=== PATIENT | female | born 1990 | race Caucasian/White ===

== ENCOUNTER 2017-06-24 16:44 | Inpatient (IN) | payer OTHER ==
[~2017-06-24] VITALS: Ht 165.1 cm; Wt 84.8 kg
[2017-06-24] MEDS ORDERED: diphenhydrAMINE 50 MG CAPSULE PO PRN (18:15)
[2017-06-24] MEDS ORDERED: ACETAMINOPHEN 325 MG TABLET PO PRN (18:15)
[2017-06-24] MEDS ORDERED: LORAZEPAM 1 MG TABLET PO PRN ×2 (18:15)
[2017-06-24] MEDS ORDERED: ONDANSETRON 4 MG/2 ML VIAL IM PRN (18:15)
[2017-06-24] MEDS ORDERED: IBUPROFEN 600 MG TABLET PO PRN (18:15)
[2017-06-24] MEDS ORDERED: HYDROXYZINE PAMOATE 25 MG CAPSULE PO PRN (18:15)
[2017-06-24] MEDS ORDERED: MIRALAX 17 GM POWD.PACK PO PRN (18:15)
[2017-06-24] MEDS ORDERED: LOPERAMIDE HCL 2 MG CAPSULE PO PRN ×2 (18:15)
[2017-06-24] MEDS ORDERED: LORAZEPAM 2 MG/1 ML VIAL IM PRN (18:15)
[2017-06-24] MEDS ORDERED: MAG HYDROX/AL HYDROX/SIMETH 30 ML LIQUID UDC PO PRN (18:15)
[2017-06-24] MEDS ORDERED: BUPRENORPHINE HCL 2 MG TAB.SUBL SL PRN (18:15)
[2017-06-24] MEDS ORDERED: ONDANSETRON ODT 4 MG TAB.RAPDIS SL PRN (18:15)
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
--- NOTE | 2017-06-24 18:45 | NUR ---
Client is on 3rd floor, Skin check performed by nurse, pictures taken of L wrist and R knee. Urine has not been collected yet. All safety measures instituted. Seizure precaution. Call light within reach. Will continue to monitor.
[2017-06-24 18:57] LABS: BASOPHILS # (AUTO) 0.1 K/uL (0.0-8.0); BASOPHILS % (AUTO) 0.7 % (0.0-2.0); EOSINOPHILS # (AUTO) 0.4 K/uL (0.0-0.7); EOSINOPHILS % (AUTO) 4.4 % (0.0-7.0); HEMATOCRIT 33.8 % (37-47); HEMOGLOBIN 11.4 G/DL (12.0-16.0); LYMPHOCYTES # (AUTO) 1.7 K/UL (0.8-4.8); LYMPHOCYTES % (AUTO) 19.8 % (20.5-51.5); MEAN CORPUSCULAR HEMOGLOBIN 28.8 UUG (27.0-31.0); MEAN CORPUSCULAR HGB CONC 34 g/dL (32.0-37.0); MEAN CORPUSCULAR VOLUME 85.7 FL (81.0-99.0); MONOCYTES # (AUTO) 0.4 K/UL (0.1-1.30); MONOCYTES % (AUTO) 4.2 % (0.0-11.0); NEUTROPHILS # (AUTO) 5.9 K/UL (1.8-8.9); NEUTROPHILS % (AUTO) 70.9 % (38.5-71.5); PLATELET COUNT (AUTO) 223 K/UL (150-450); RED BLOOD CELL COUNT(AUTO) 3.95 MIL/UL (4.2-5.4); WHITE BLOOD COUNT (AUTO) 8.5 K/UL (4.0-11.2)
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
[2017-06-24 19:06] LABS: *URINE HCG, QUAL NEGATIVE (NEGATIVE); ALANINE AMINOTRANSFERASE 19 U/L (14-59); ALKALINE PHOSPHATASE 103 U/L (50-136); ASPARTATE AMINOTRANSFERASE 16 U/L (15-37); BILIRUBIN,TOTAL 0.2 mg/dL (0.2-1.0); CARBON DIOXIDE 29 mmol/L (21-32); CHLORIDE 105 mmol/L (98-107); CREATININE 0.8 mg/dL (0.6-1.3); GLUCOSE 111 mg/dL (74-106); MAGNESIUM 1.8 mg/dL (1.8-2.4); TOTAL PROTEIN, SERUM 6.4 g/dL (6.4-8.2); UREA NITROGEN, BLOOD 6 mg/dL (7-18)
[2017-06-24 19:14] LABS: ETHANOL < 3 MG/DL (0-0)
[2017-06-24 19:27] LABS: *AMPHETAMINE, URINE NEGATIVE (NEGATIVE); *BARBITURATE, URINE POSITIVE (NEGATIVE); *CANNABINOID, URINE NEGATIVE (NEGATIVE); *COCCAINE, URINE NEGATIVE (NEGATIVE); *OPIATE, URINE POSITIVE (NEGATIVE); *PHENCYCLIDINE SCREEN,URINE NEGATIVE (NEGATIVE)
--- NOTE | 2017-06-24 19:30 | NUR ---
END OF SHIFT Endorsed client to incoming nurse, client is in room on 1:1 for safety precautions. Client reports hx of seizure. Seizure precautions rendered.
[2017-06-24 20:00] VITALS: BP 114/80
[2017-06-24] MEDS ORDERED: METH-406 PO (20:38)
[2017-06-24] MEDS ORDERED: IBUP-1955 PO (20:38)
[2017-06-24] MEDS ORDERED: HYDR25CA PO (20:38)
[2017-06-24] MEDS ORDERED: MULT-1119 PO (20:38)
[2017-06-24] MEDS ORDERED: PHEN64.8 PO (20:38)
[2017-06-24] MEDS ORDERED: POLY10DR3 OP (20:38)
[2017-06-24] MEDS ORDERED: BUPR8TAB4 SL (20:38)
[2017-06-24] MEDS ORDERED: CLON0.1T PO (20:38)
[2017-06-24] MEDS ORDERED: LORA1TAB PO (20:38)
[2017-06-24] MEDS ORDERED: PROP20TA22 GT (20:38)
[2017-06-24] MEDS ORDERED: BUPR1FIL SL (20:38)
[2017-06-24] MEDS ORDERED: NAPH15DR8 OP (20:38)
[2017-06-24] MEDS ORDERED: GABA-534 PO (20:38)
[2017-06-24] MEDS ORDERED: PRAZ2CAP2 PO (20:38)
[2017-06-24] MEDS ORDERED: ACET-73 PO ×2 (20:38)
[2017-06-24] MEDS ORDERED: ONDA8TAB6 PO (20:38)
[2017-06-24] MEDS ORDERED: VENL150T PO (20:38)
[2017-06-24] MEDS ORDERED: ACET-2067 PO (20:38)
[2017-06-24] MEDS ORDERED: LEVO500T90 PO (20:38)
[2017-06-24] MEDS: CLONIDINE HCL 0.1 MG TABLET PO PRN (21:24)
--- NOTE | 2017-06-24 21:24 | NUR ---
PRN medication Patient received PRN Ativan 1 mg PO at 2123 for CIWA 10. Patient received Benadryl 50 mg PO at 2123 for c/o insomnia Patient received Clonidine 0.1 mg PO at 2123 for anxiety of a 8 out of 10. Patient received Motrin 600 mg PO at 2123 for complaints of bodyaches generalized of a 7 out of 10. effects pending
--- NOTE | 2017-06-24 22:24 | NUR ---
Reassessment of Patient PAtient reassessed one hour after PRN Ativan 1mg Given for benzo/alcohol withdrawal. Patient resting comfortably in bed with eyes closed. Patient reassessed one hour after PRN Benadryl given for anxiety. PAtient resting with eyes closed. Breathing even and unlabored. respirations 16 Patient reassessed one hour after PRN Clonidine 0.1 mg PO given for anxiety. Patient resting/eyes closed with no further c/o anxiety. Patient reassessed one hour after Motrin 600 mg PO given for generalized bodyaches/pain Patient with no further pain or complaints of pain. Remains on 1:1.
--- NOTE | 2017-06-25 | NUR ---
vital signs refused Patient refused vital signs at 0000
--- NOTE | 2017-06-25 04:00 | NUR ---
COWS CIWA deferred Vital signs refused. PAtient refused 0400 am vital signs. CIWA and COWS deferred for sleep.
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
--- NOTE | 2017-06-25 07:30 | NUR ---
START OF SHIFT Pt 26 y/o female admitted for substance use disorder. Pt received in room on bed with eyes closed resting, but easily arousable to name. Pt alert and oriented to name, place, and time. Perrla. Skin warm and dry to touch. Respirations even and unlabored. Pt with sitter 1:1 for safety. It was reported that pt slept for 6 hours last night. Bed on lowest position with side rails x2 up for safety. Call light within reach. No distress noted at this time.
[2017-06-25 08:10] VITALS: BP 110/59
[2017-06-25] MEDS ORDERED: TUBERCULIN,PURIF.PROT.DERIV. 5 TU/0.1 ML TEST ID ONE (09:00)
[2017-06-25] MEDS: MULTIVITAMINS,THERAPEUTIC TABLET PO SCH (09:42)
[2017-06-25] MEDS ORDERED: GABAPENTIN 300 MG CAPSULE PO PRN (10:45)
[2017-06-25] MEDS ORDERED: PROPRANOLOL HCL 20 MG TABLET GT PRN (10:45)
[2017-06-25 12:38] VITALS: BP 101/72
[2017-06-25] MEDS ORDERED: BUPRENORPHINE HCL 2 MG TAB.SUBL SL PRN (13:00)
[2017-06-25] MEDS ORDERED: LORAZEPAM 1 MG TABLET PO PRN (13:00)
[2017-06-25] MEDS: METHOCARBAMOL 750 MG TABLET PO PRN (15:51)
[2017-06-25] MEDS: DICYCLOMINE HCL 20 MG TABLET PO PRN (15:51)
[2017-06-25] MEDS: LORAZEPAM 1 MG TABLET PO PRN ×2 (15:51→20:27)
--- NOTE | 2017-06-25 15:56 | NUR ---
PRN Pt states has generalized body aches /10. Robaxin po prn per MD order given and tolerated well.
--- NOTE | 2017-06-25 15:56 | NUR ---
PRN Ciwa=5. Ativan po prn per MD order given and tolerated well.
--- NOTE | 2017-06-25 15:57 | NUR ---
PRN Pt states has stomach cramps. Bentyl po prn per MD order given and tolerated well.
--- NOTE | 2017-06-25 16:56 | NUR ---
MAYLIN LOZANO Pt observed walking around the hallway. Pt states pain 12/27.
--- NOTE | 2017-06-25 16:56 | NUR ---
PRN EVAL ciwa=1
--- NOTE | 2017-06-25 16:57 | NUR ---
PRCarmencita LOZANO Pt denies stomach cramps at this time.
[2017-06-25] MEDS ORDERED: PREGABALIN 100 MG CAPSULE PO SCH (17:00)
[2017-06-25] MEDS: PREGABALIN 100 MG CAPSULE PO SCH (17:06)
[2017-06-25] MEDS: PREGABALIN 25 MG CAPSULE PO SCH (17:07)
--- NOTE | 2017-06-25 17:14 | NUR ---
PRN pt with cows=12. Subutex po prn per MD order given and tolerated well.
[2017-06-25 17:41] VITALS: BP 109/72
--- NOTE | 2017-06-25 18:14 | NUR ---
PRN EVAL cows=3
--- NOTE | 2017-06-25 18:46 | NUR ---
END OF SHIFT Pt 26 y/o female admitted for substance use disorder. Pt alert and oriented to name, place, and time. Perrla. Skin warm and slightly moist to touch. Respirations even and unlabored. Bilateral hand tremors noted. Pt with 1:1 sitter to monitor for safety. Pt did not attend group activity today. Pt observed mostly in room throughout the day. Pt medication compliant and tolerated well. No ASE noted. Bed on lowest position with side rails x2 up for safety. Call light within reach. No distress noted at this time.
--- NOTE | 2017-06-25 19:45 | NUR ---
Start of Shift Endorsement from AM nurse. Patient is a 26 year old female admitted to [facility] ob 9--17. Patient has dependence to benzodiazepines, alcohol, and opiates. Patient reports last use of alcohol was 3 days ago when she drank 1/5 of [place]. She reports last use of xanax 3 days prior to admission when she used 4 xanax "bars". Patient denies using opiates other than Subutex which is prescribed by her PCP Dr Choudhury. Patient reports using 8 mg of Subutex 3 days prior to admission. States last heroin use about one year ago. She is currently on a 1:1 for safety. She is forgetful but coherent. Past history of Generalized anxiety disorder, PTSD, and Panic Disorder. Patient has allergy to Amoxicillin and naltrexone. She reports history of seizures with withdrawal x 2 in 2011 and 2012. She reports history of fibromyalgia and Herpes (genital) Patient vital signs are stable. Last CIWA 12 COWS 3. Patient on fall and seizure precautions, bed in lowest locked position with 2 side rails up. Patient remains on 1:1 for safety.
[2017-06-25 20:00] VITALS: BP 112/70
--- NOTE | 2017-06-25 20:27 | NUR ---
PRN MEDICATION Patient received: Zofran 4mg SL at 2126 for C/O nausea. Neurontin 300 mg PO for anxiety and restlessness Ativan 1 mg PO for Benzo/Alcohol withdrawal with CIWA of 8. Effect pending
[2017-06-25] MEDS: PRAZOSIN HCL 1 MG CAPSULE PO SCH (20:28)
--- NOTE | 2017-06-25 21:27 | NUR ---
Reassessment of Patient Patient reassessed one hour after PRN medications given Zofran 4mg SL at 2127 for C/O nausea. Patient reports no further nausea. Neurontin 300 mg PO for anxiety and restlessness. Patietn states her anxiety has reduced to a 2-3. Ativan 1 mg PO for Benzo/Alcohol withdrawal with CIWA of 8. Patient calm and without any current complaints offered.
--- NOTE | 2017-06-26 | NUR ---
COWS/CIWA deferred. Vital signs refused Patient refused 0000 vital signs. eyes closed, resting comfortably, stating she wants to sleep. COWS/CIWA deferred for sleep. Respirations 16. Breathing even and unlabored.
--- NOTE | 2017-06-26 04:03 | NUR ---
COWS/CIWA deferred. Vital signs refused Patient refused 0400 vital signs. eyes closed, resting comfortably, stating she wants to sleep. COWS/CIWA deferred for sleep. Respirations 16. Breathing even and unlabored.
--- NOTE | 2017-06-26 06:54 | NUR ---
End of shift note Endorsement to AM nurse. Patient is a 26 year old female admitted to [facility] ob 9-5-17. Patient has dependence to benzodiazepines, alcohol, and opiates. She is currently on a 1:1 for safety. Past history of Generalized anxiety disorder, PTSD, and Panic Disorder. Patient has allergy to Amoxicillin and naltrexone. She reports history of seizures with withdrawal x 2 in 2011 and 2012. Remains on Ativan PRN and Subutex PRN. She reports history of fibromyalgia and Herpes (genital). Lyrica was started yesterday for her fibromyalgia. Patient vital signs at 1999 BP 112/70, P 89, R 18, T 98.0, SPO2 98% on RA. Last CIWA 8 COWS 6. Patient received: Zofran 4mg SL at 2127 for C/O nausea. Good effect noted Neurontin 300 mg PO at 2127 for anxiety and restlessness with good effect noted. Ativan 1 mg PO at 2127 for Benzo/Alcohol withdrawal with CIWA of 8. Good effect noted. Slept a total of 6 hours. Intake 1210 ml Output 3 voids 1 BM. Patient on fall and seizure precautions, bed in lowest locked position with 2 side rails up. Patient remains on 1:1 for safety.
[2017-06-26 08:00] VITALS: BP 105/69
[2017-06-26] MEDS: LEVOFLOXACIN 500 MG TABLET PO SCH (10:08)
[2017-06-26] MEDS: VENLAFAXINE XR 150 MG CAP.SR.24H PO SCH (10:08)
[2017-06-26] MEDS: MULTIVITAMINS,THERAPEUTIC TABLET PO SCH (10:08)
[2017-06-26] MEDS: PREGABALIN 25 MG CAPSULE PO SCH ×3 (10:08→17:06)
[2017-06-26] MEDS: PREGABALIN 100 MG CAPSULE PO SCH ×3 (10:08→17:06)
[2017-06-26] MEDS: CLONIDINE HCL 0.1 MG TABLET PO PRN (11:34)
[2017-06-26] MEDS: METHOCARBAMOL 750 MG TABLET PO PRN (11:34)
[2017-06-26] MEDS: LORAZEPAM 1 MG TABLET PO PRN (11:34)
[2017-06-26] MEDS: DICYCLOMINE HCL 20 MG TABLET PO PRN (11:34)
--- NOTE | 2017-06-26 11:41 | NUR ---
PRN Pt with ciwa=6. Ativan 1mg prn po per MD order given and tolerated well.
--- NOTE | 2017-06-26 11:42 | NUR ---
PRN Pt anxious and tearful. vistaril po prn per MD order given and tolerated well.
--- NOTE | 2017-06-26 11:43 | NUR ---
PRN Pt states has stomach cramps. Bentyl po prn per MD order given and tolerated well.
--- NOTE | 2017-06-26 11:44 | NUR ---
PRN Pt extremely anxious and with tearful episodes noted. Catapres po prn per MD order given and tolerated well.
[2017-06-26 12:10] LABS: HEPATITIS B SURFACE AG Negative (Negative)
--- NOTE | 2017-06-26 12:41 | NUR ---
PRN EVAL Pt with ciwa=2
--- NOTE | 2017-06-26 12:43 | NUR ---
PRN EVAL Pt states does not have stomach cramp.
--- NOTE | 2017-06-26 12:44 | NUR ---
PRN BLAKE pt observed in room on bed with eyes closed resting, but easily arousable to name.
[2017-06-26] MEDS ORDERED: LORAZEPAM 1 MG TABLET PO PRN ×2 (13:00)
[2017-06-26] MEDS: FAMOTIDINE 20 MG TABLET PO SCH ×2 (13:00→20:26)
[2017-06-26] MEDS ORDERED: BUPRENORPHINE HCL 2 MG TAB.SUBL SL PRN (13:00)
[2017-06-26] MEDS ORDERED: FAMO20TA8 PO (13:05)
[2017-06-26] MEDS ORDERED: PREG100C PO (13:05)
[2017-06-26] MEDS ORDERED: IBUPROFEN 800 MG TABLET PO PRN (13:15)
[2017-06-26] MEDS ORDERED: diphenhydrAMINE 25 MG CAP PO PRN (13:15)
[2017-06-26 13:33] VITALS: BP 97/60
[2017-06-26] MEDS: METHOCARBAMOL 750 MG TABLET PO SCH ×2 (14:14→20:27)
[2017-06-26] MEDS: DICYCLOMINE HCL 20 MG TABLET PO SCH ×2 (14:14→20:27)
[2017-06-26] MEDS: LORAZEPAM 0.5 MG TABLET PO SCH ×3 (14:14→21:01)
[2017-06-26] MEDS: BUPRENORPHINE HCL 2 MG TAB.SUBL SL SCH ×2 (17:00→20:28)
--- NOTE | 2017-06-26 17:00 | NUR ---
SUBUTEX HELD Pt with cows=6. Pt observed on bed appeared sedated. pt frequently closed eyes during conversation. Subutex 4 mg po was held and made aware.
[2017-06-26 17:31] VITALS: BP 107/69
--- NOTE | 2017-06-26 18:00 | NUR ---
ATIVAN HELD pt observed on bed with eyes closed resting, but easily arousable. Pt appeared sedated. Pt frequently closes eyes during conversation. Ativan 2mg po held and made aware.
[2017-06-26] MEDS ORDERED: IBUPROFEN 600 MG TABLET PO PRN (18:15)
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
[2017-06-26 20:00] VITALS: BP 112/65
[2017-06-26] MEDS: GABAPENTIN 300 MG CAPSULE PO SCH (20:26)
[2017-06-26] MEDS: PRAZOSIN HCL 1 MG CAPSULE PO SCH (20:27)
[2017-06-27] VITALS: BP 96/61
[2017-06-27 04:00] VITALS: BP 103/68
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
[2017-06-27 08:00] VITALS: BP 114/72
[2017-06-27] MEDS: PREGABALIN 25 MG CAPSULE PO SCH ×3 (08:25→17:15)
[2017-06-27] MEDS: VENLAFAXINE XR 150 MG CAP.SR.24H PO SCH (08:25)
[2017-06-27] MEDS: MULTIVITAMINS,THERAPEUTIC TABLET PO SCH (08:25)
[2017-06-27] MEDS: PREGABALIN 100 MG CAPSULE PO SCH ×3 (08:26→17:14)
[2017-06-27] MEDS: METHOCARBAMOL 750 MG TABLET PO SCH ×3 (08:26→20:28)
[2017-06-27] MEDS: DICYCLOMINE HCL 20 MG TABLET PO SCH ×3 (08:26→20:29)
[2017-06-27] MEDS: FAMOTIDINE 20 MG TABLET PO SCH ×2 (08:26→20:28)
[2017-06-27] MEDS: LORAZEPAM 0.5 MG TABLET PO SCH ×3 (08:26→20:29)
[2017-06-27] MEDS: LEVOFLOXACIN 500 MG TABLET PO SCH (08:26)
[2017-06-27] MEDS ORDERED: BUPRENORPHINE HCL 2 MG TAB.SUBL SL SCH (09:00)
[2017-06-27 13:12] VITALS: BP 133/84
[2017-06-27] MEDS: KETOROLAC TROMETHAMINE 30 MG INJ IM PRN ×2 (14:39→23:09)
--- NOTE | 2017-06-27 14:43 | NUR ---
PRN Pt with c/o lower back pain 03/29. toradol IM prn per MD order given and tolerated well.
--- NOTE | 2017-06-27 15:43 | NUR ---
PRN EVAL Pt observed walking around unit. PT states pain is 2/10.
[2017-06-27] MEDS: BUPRENORPHINE HCL 2 MG TAB.SUBL SL SCH ×2 (16:08→20:28)
[2017-06-27] MEDS: HYDROXYZINE PAMOATE 25 MG CAPSULE PO PRN (16:08)
--- NOTE | 2017-06-27 16:12 | NUR ---
PRN Pt states feels anxious. Vistaril po prn per MD order given and tolerated well.
--- NOTE | 2017-06-27 16:12 | NUR ---
PRN EVAL Pt states still feels anxious.
[2017-06-27] MEDS: CLONIDINE HCL 0.1 MG TABLET PO PRN (17:17)
--- NOTE | 2017-06-27 17:17 | NUR ---
PRN Pt states still feels anxiuos. Catapres po prn per MD order given and tolerated well.
[2017-06-27 17:30] VITALS: BP 122/64
--- NOTE | 2017-06-27 18:18 | NUR ---
MAYLIN LOZANO Pt observed in room on bed watching television.
--- NOTE | 2017-06-27 18:19 | NUR ---
END OF SHIFT Pt 26 y/o female admitted for substance use disorder. Pt alert and oriented to name, place, and time. Perrla. Skin warm and slightly moist to touch. Respirations even and unlabored. Bilateral hand tremors noted. Pt with 1:1 sitter to monitor for safety. Pt selective with group activity today. Pt observed mostly in room throughout the day. Pt medication compliant and tolerated well. No ASE noted. Bed on lowest position with side rails x2 up for safety. Call light within reach. No distress noted at this time.
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
[2017-06-27 20:00] VITALS: BP 116/76
[2017-06-27] MEDS: PRAZOSIN HCL 1 MG CAPSULE PO SCH (20:29)
[2017-06-27] MEDS: GABAPENTIN 300 MG CAPSULE PO SCH (20:29)
--- NOTE | 2017-06-27 23:09 | NUR ---
PRN TORADOL 30 MG/1 ML IM ADMINISTRATION Patient c/o generalized body aches pain "8/10"and asked aid. PRN Toradol Inj 30 mg/1 ml IM on Left Upper Deltoid Muscle. Patient tolerated well. All needs met. Safety measures on place. Call light within reach, bed in lowest position and locked, padded rails up bilaterally rails up bilaterally. Will continue to monitor closely.
[2017-06-28] VITALS: BP 110/68
--- NOTE | 2017-06-28 00:09 | NUR ---
RE-ASSESSMENT Patient is sleeping. Respirations even and unlabored. RR:16. PRN Toradol Inj 30 mg/1 ml IM was effective. All needs met. Safety measures on place. Call light within reach, bed in lowest position and locked, padded rails up bilaterally rails up bilaterally. Will continue to monitor closely.
[2017-06-28 04:00] VITALS: BP 108/64
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
[2017-06-28 07:27] LABS: IRON, SERUM 28 ug/dL (50-175)
--- NOTE | 2017-06-28 07:30 | NUR ---
START OF SHIFT NOTE Pt is a 26 yr old female. Pt was admitted on 06/24/17 for Substance dependence and is on 4 day Ativan and 4 day Subutex taper as ordered. Pt is currently in bed resting with respirations even and unlabored. Pt remains on 1:1 for unsteady gait. Skin is intact, warm and dry to touch. No tremor seen or felt. Pt denies any n/v. Pt is c/o body aches 5/10. No facial grimacing is observed. Encouraged increase fluid intake. Safety precautions observed. Call light is within reach. Will continue to monitor.
[2017-06-28 07:43] LABS: FERRITIN 15 ng/mL (8-252)
[2017-06-28 08:00] VITALS: BP 108/63
[2017-06-28] MEDS: LORAZEPAM 1 MG TABLET PO SCH ×2 (09:54→17:13)
[2017-06-28] MEDS: PREGABALIN 100 MG CAPSULE PO SCH ×3 (09:54→17:12)
[2017-06-28] MEDS: METHOCARBAMOL 750 MG TABLET PO SCH ×3 (09:54→20:30)
[2017-06-28] MEDS: FAMOTIDINE 20 MG TABLET PO SCH ×2 (09:54→20:30)
[2017-06-28] MEDS: MULTIVITAMINS,THERAPEUTIC TABLET PO SCH (09:54)
[2017-06-28] MEDS: DICYCLOMINE HCL 20 MG TABLET PO SCH ×3 (09:54→20:31)
[2017-06-28] MEDS: BUPRENORPHINE HCL 2 MG TAB.SUBL SL SCH ×3 (09:55→20:31)
[2017-06-28] MEDS: PREGABALIN 25 MG CAPSULE PO SCH ×3 (09:55→17:12)
[2017-06-28] MEDS: LEVOFLOXACIN 500 MG TABLET PO SCH (09:55)
[2017-06-28] MEDS: VENLAFAXINE XR 150 MG CAP.SR.24H PO SCH (09:55)
[2017-06-28 13:07] VITALS: BP 101/62
[2017-06-28 16:00] VITALS: BP 109/75
--- NOTE | 2017-06-28 18:54 | NUR ---
END OF SHIFT NOTE Pt is a 26 yr old female. Pt was admitted on 06/24/17 for ETOH/Benzo/Opiate and is on 4 day Ativan and 4 day Subutex taper as ordered. No PRNs were given during the day. Last COWS score was 5, CIWA score was 3. Pt remains on 1:1 for unsteady gait. Pt has been cooperative and attended group sessions. Skin is intact, warm and dry to touch. No tremor seen or felt. Pt denies any n/v. Encouraged increase fluid intake. Safety precautions observed. Call light is within reach.
[2017-06-28 20:00] VITALS: BP 124/72
--- NOTE | 2017-06-28 20:00 | NUR ---
START OF SHIFT NOTE PATIENT IN ROOM. ALERT AND VERBALLY RESPONSIVE. RESPIRATION EVEN AND UNLABORED.PATIENT NOTED EMOTIONAL, SHE STATES SHE MISSES HER DAUGHTER. PATIENT REPORTS ANXIETY,ABDOMINAL CRAMPING, NO N/V AND GENERALIZED BODY ACHES /10. PATIENT ATTENDED GROUPS EXCEPT THE LAST ONE SHE SAID. APPETITE IS GOOD. RECEIVED REPORT FROM DAY SHIFT NURSE. PATIENT IS A 26 YEAR OLD FEMALE, ADMITTED FOR SUBSTANCE ABUSE. PATIENT IS ON 4 DAY ATIVAN AND 4 DAY SUBUTEX TAPER. PATIENT IS ALLERGIC TO AMOXICILLIN AND NALOXONE. PATIENT REPORTS PMH OF SEIZURE X 2 DUE TO WITHDRAWAL. PATIENT IS ON 1:1 FOR UNSTEADY GAIT. ON LEVAQUIN FOR UTI. PATIENT DID NOT REQUIRE PRN MEDICATION. LAST COWS 5 AND CIWA 3. ON FALL/SEIZURE PRECAUTION. SAFETY MEASURES IN PLACE. CALL LIGHT IN REACH. WILL CONTINUE TO MONITOR.
[2017-06-28] MEDS: PRAZOSIN HCL 1 MG CAPSULE PO SCH (20:31)
[2017-06-28] MEDS: GABAPENTIN 300 MG CAPSULE PO SCH (20:31)
[2017-06-28] MEDS: KETOROLAC TROMETHAMINE 30 MG INJ IM PRN (23:02)
--- NOTE | 2017-06-28 23:02 | NUR ---
PRN TORADOL INJ ADMINISTRATION PATIENT C/O GENERALIZED BODY PAIN 04/28. PRN TORADOL INJ GIVEN. WILL MONITOR FOR EFFECTIVENESS
[2017-06-29] VITALS: BP 104/58
--- NOTE | 2017-06-29 00:02 | NUR ---
PRN TORADOL RE-ASSESSMENT PATIENT ASLEEP AT THIS TIME. NO FACIAL GRIMACING. RESPIRATION EVEN AND UNLABORED. SAFETY MEASURES IN PLACE. CALL LIGHT IN REACH. WILL CONTINUE TO MONITOR
--- NOTE | 2017-06-29 07:10 | NUR ---
END OF SHIFT NOTE PATIENT REMAIN ALERT AND VERBALLY RESPONSIVE. RESPIRATION EVEN AND UNLABORED. PATIENT NOTED EMOTIONAL, SHE STATES SHE MISSES HER DAUGHTER. PATIENT REPORTS ANXIETY,ABDOMINAL CRAMPING, NO N/V AND GENERALIZED BODY ACHES 03/29 BEGINNING OF SHIFT. PATIENT ATTENDED GROUPS EXCEPT THE LAST ONE SHE SAID. APPETITE IS GOOD. PATIENT CONTINUE ON 4 DAY ATIVAN AND 4 DAY SUBUTEX TAPER, TOLERATED WELL. NO ADVERSE REACTION . PATIENT IS ON 1:1 FOR UNSTEADY GAIT .PATIENT WAS GIVEN PRN TORADOL INJECTION FOR GENERALIZED BODY PAIN. PATIENT COMPLIANT WITH MEDICATION AND TREATMENT PLAN. LAST COWS 3 AND CIWA 2. ON FALL/SEIZURE PRECAUTION. SAFETY MEASURES IN PLACE. CALL LIGHT IN REACH. WILL CONTINUE TO MONITOR.SLEPT 6 HOURS. FLUID INTAKE 946 ML. VOIDED X 3. NO BM.
--- NOTE | 2017-06-29 07:30 | NUR ---
START OF SHIFT NOTE Pt is a 26 yr old female. Pt was admitted on 06/24/17 for Substance dependence and is on 4 day Ativan and 4 day Subutex taper as ordered. Pt is currently in bed resting with respirations even and unlabored. Pt remains on 1:1 for unsteady gait. Skin is intact, warm and dry to touch. No tremor seen or felt. Pt denies any n/v. Pt is c/o body aches 3/10. No facial grimacing is observed. Encouraged increase fluid intake. Safety precautions observed. Call light is within reach. Will continue to monitor.
[2017-06-29 08:00] VITALS: BP 106/58
[2017-06-29] MEDS ORDERED: BUPRENORPHINE HCL 2 MG TAB.SUBL SL SCH (09:00)
[2017-06-29] MEDS ORDERED: LORAZEPAM 1 MG TABLET PO SCH (09:00)
[2017-06-29] MEDS: FERROUS SULFATE 325 MG TABEC PO SCH ×3 (09:05→17:17)
[2017-06-29] MEDS: DICYCLOMINE HCL 20 MG TABLET PO SCH ×3 (09:05→21:26)
[2017-06-29] MEDS: PREGABALIN 25 MG CAPSULE PO SCH ×3 (09:05→17:17)
[2017-06-29] MEDS: MULTIVITAMINS,THERAPEUTIC TABLET PO SCH (09:05)
[2017-06-29] MEDS: FAMOTIDINE 20 MG TABLET PO SCH ×2 (09:05→21:26)
[2017-06-29] MEDS: PREGABALIN 100 MG CAPSULE PO SCH ×3 (09:05→17:17)
[2017-06-29] MEDS: METHOCARBAMOL 750 MG TABLET PO SCH ×3 (09:05→21:27)
[2017-06-29] MEDS: LEVOFLOXACIN 500 MG TABLET PO SCH (09:05)
[2017-06-29] MEDS: VENLAFAXINE XR 150 MG CAP.SR.24H PO SCH (09:05)
[2017-06-29] MEDS: KETOROLAC TROMETHAMINE 30 MG INJ IM PRN ×2 (11:29→23:05)
--- NOTE | 2017-06-29 11:38 | NUR ---
PRN GIVEN/ENDORSEMENT GIVEN PT C/O GENERALIZED BODY ACHES 05/29. TORADOL 30ML IM PRN WAS GIVEN ORDERED. ENDORSED TO RN NURSE TO CONTINUE TO MONITOR.
[2017-06-29 12:00] VITALS: BP 141/82
--- NOTE | 2017-06-29 12:20 | NUR ---
ASSUMED CARE OF PT. SHE STATES TORADOL IS EFFECTIVE. PAIN 12/27 ON SCALE. Addendum: 06/29/17 at 1848 by MARYBEL MCKEON RN COWS ACTUALLY 7 AT 1600
[2017-06-29 16:00] VITALS: BP 119/72
--- NOTE | 2017-06-29 18:50 | NUR ---
END OF SHIFT: PT COMPLETED SUBUTEX TAPER. SHE CONTINUES ON 1;1 FOR UNSTEADY GAIT. SHE BECAME UPSET WHEN FINDING OUT SHE COMPLETED TAPER AND STATES SHE IS HESITANT ABOUT LEAVING TOMORROW SCHEDULED. NO PRNS GIVEN THIS SHIFT. LAST COWS 2 CIWA 2.OFFERED SUPPORT. WILL PASS SHIFT REPORT TO ONCOMING NIGHT NURSE.
[2017-06-29 20:00] VITALS: BP 114/78
--- NOTE | 2017-06-29 20:00 | NUR ---
START OF SHIFT NOTE PATIENT IN HER ROOM. NOTED EMOTIONAL, ANXIOUS, RESTLESS AND AGITATED. PATIENT VERBALIZES ABOUT HER COMPLETED TAPER. EXPLAINED TO PATIENT REGARDING HER TAPER WITHIN NURSING SCOPE AND RELAXATION TECHNIQUE PROVIDED. POSITIVE ENCOURAGEMENT PROVIDED. RECEIVED REPORT FROM DAY SHIFT NURSE. PATIENT IS A 26 YEAR OLD FEMALE ADMITTED FOR ETOH/BENZO AND OPIATE DEPENDENCE. PATIENT COMPLETED 4 DAY ATIVAN AND 4 DAY SUBUTEX TAPER. PATIENT IS MEDICALLY CLEARED TO BE DISCHARGE TOMORROW. PATIENT WAS GIVEN PRN TORADOL IM. PATIENT WAS HESITANT TO LEAVE TOMORROW DUE TO HER TAPER BEING COMPLETED. SUPPORT WAS OFFERED. LAST COWS 2 AND CIWA 2. PATIENT CONTINUE ON 1:[address] IN PL[address]. CALL LIGHT IN REACH. WILL CONTINUE TO MONITOR.
[2017-06-29] MEDS: PRAZOSIN HCL 1 MG CAPSULE PO SCH (21:26)
[2017-06-29] MEDS: CLONIDINE HCL 0.1 MG TABLET PO PRN (21:26)
[2017-06-29] MEDS: HYDROXYZINE PAMOATE 25 MG CAPSULE PO PRN (21:27)
[2017-06-29] MEDS: GABAPENTIN 300 MG CAPSULE PO SCH (21:27)
--- NOTE | 2017-06-29 21:27 | NUR ---
PRN CATAPRES AND VISTARIL ADMINISTRATION PATIENT NOTED EMOTIONAL, RESTLESS, AGITATED AND REPORTS ANXIETY. NON-PHARMACOLOGICAL INTERVENTION INEFFECTIVE. CATAPRES AND VISTARIL GIVEN. WILL MONITOR FOR EFFECTIVENESS
--- NOTE | 2017-06-29 21:27 | NUR ---
PRN VISTARIL AND CATAPRES ADMINISTRATION PATIENT WAS ANXIOUS, AGITATED ,RESTLESS AND EMOTIONAL. PRN VISTARIL AND CATAPRES GIVEN. WILL MONITOR FOR EFFECTIVENESS
--- NOTE | 2017-06-29 22:27 | NUR ---
PRN VISTARIL AND CATAPRES RE-ASSESSMENT PATIENT CALM AT THIS TIME, ANXIETY LESS. WILL CONTINUE TO MONITOR.
--- NOTE | 2017-06-29 23:05 | NUR ---
PRN TORADOL IM ADMINISTRATION PATIENT C/O GENERALIZED BODY ACHES 04/28. PRN TORADOL IM GIVEN. WILL MONITOR FOR EFFECTIVENESS
--- NOTE | 2017-06-30 | NUR ---
COWS/CIWA/VS PATIENT ASLEEP. COWS/CIWA UNABLE TO ASSESS. RESPIRATION EVEN AND UNLABORED. RR 15. SAFETY MEASURES IN PLACE. CALL LIGHT IN REACH. WILL CONTINUE TO MONITOR
--- NOTE | 2017-06-30 00:05 | NUR ---
PRN TORADOL IM RE-ASSESSMENT PATIENT IN BED SLEEPING COMFORTABLY. NO FACIAL GRIMACING. CONTINUE ON 1:1 FOR SAFETY. WILL CONTINUE TO MONITOR.
--- NOTE | 2017-06-30 04:00 | NUR ---
COWS/CIWA/VS PATIENT ASLEEP. COWS/CIWA UNABLE TO ASSESS. RESPIRATION EVEN AND UNLABORED. RR 16. SAFETY MEASURES IN PLACE. CALL LIGHT IN REACH. WILL CONTINUE TO MONITOR
--- NOTE | 2017-06-30 07:15 | NUR ---
END OF SHIFT NOTE PATIENT CONTINUE ON 1:1 FOR SAFETY. PATIENT COMPLETED 4 DAY ATIVAN AND 4 DAY SUBUTEX TAPER. PATIENT IS MEDICALLY CLEARED TO BE DISCHARGE TODAY. PATIENT WAS GIVEN PRN TORADOL IM FOR GENERALIZED BODY ACHES. PATIENT WAS HESITANT TO LEAVE THROUGHOUT DUE TO HER TAPER BEING COMPLETED. PATIENT WAS NOTED EMOTIONAL, ANXIOUS, RESTLESS AND AGITATED BEGINNING OF SHIFT. POSITIVE ENCOURAGEMENT PROVIDED , EXPLAINED TO PATIENT REGARDING HER TAPER WITHIN NURSING SCOPE AND RELAXATION TECHNIQUE PROVIDED, SUPPORT WAS OFFERED. PRN S CATAPRES AND VISTARIL GIVEN. ON FALL/SEIZURE PRECAUTION. SAFETY MEASURES IN PLACE. CALL LIGHT IN REACH. WILL CONTINUE TO MONITOR. SLEPT 8 HOURS. FLUID INTAKE 710 ML. VOIDED X 2 . NO BM. LAST COWS 4 AND CIWA 4.
--- NOTE | 2017-06-30 07:36 | NUR ---
START OF SHIFT Pt is a 26 yr old female. Pt was admitted on 06/24/17 for Substance dependence and has completed a 4 day Ativan and 4 day Subutex taper as ordered. Pt is currently in bed resting with respirations even and unlabored. Pt remains on 1:1 for unsteady gait. Skin is intact, warm and dry to touch. No tremor seen or felt. Pt denies any n/v. Pt denies any pain or discomfort at this time. Encouraged increase fluid intake. Safety precautions observed. Call light is within reach. Will continue to monitor.
[2017-06-30 08:00] VITALS: BP 109/71
[2017-06-30] MEDS: FAMOTIDINE 20 MG TABLET PO SCH (08:50)
[2017-06-30] MEDS: LEVOFLOXACIN 500 MG TABLET PO SCH (08:50)
[2017-06-30] MEDS: PREGABALIN 100 MG CAPSULE PO SCH (08:50)
[2017-06-30] MEDS: PREGABALIN 25 MG CAPSULE PO SCH (08:50)
[2017-06-30] MEDS: METHOCARBAMOL 750 MG TABLET PO SCH (08:50)
[2017-06-30] MEDS: VENLAFAXINE XR 150 MG CAP.SR.24H PO SCH (08:50)
[2017-06-30] MEDS: MULTIVITAMINS,THERAPEUTIC TABLET PO SCH (08:50)
[2017-06-30] MEDS: DICYCLOMINE HCL 20 MG TABLET PO SCH (08:50)
[2017-06-30] MEDS: FERROUS SULFATE 325 MG TABEC PO SCH (08:50)
--- NOTE | 2017-06-30 10:10 | NUR ---
DISCHARGE NOTE Pt is a 26 yr old female. Pt was admitted on 06/24/17 for Substance dependence and has completed a 4 day Ativan and 4 day Subutex taper as ordered. Pt has been cooperative with care and attended group sessions during her stay. No complications were noted. Pt was educated on discharge summary and prescriptions. Pt was able to verbalize understanding. Pt left the unit on 06/30/17 at 0955 in stable condition. Pt left with all belongings, valuables and home medication.
== END 2017-06-30 09:55 | disposition other institution (70) | DRG 895 ==
LOC: SRC 17:17
PROVIDERS: ADMIT Internal Medicine; ATTEND Internal Medicine
PROC: HZ2ZZZZ Detoxification Services for Substance Abuse Treatment (ICD-10-PCS; principal; 2017-06-24)
PROC: HZ41ZZZ Group Counseling for Substance Abuse Treatment, Behavioral (ICD-10-PCS; 2017-06-27)
PROC: HZ31ZZZ Individual Counseling for Substance Abuse Treatment, Behavioral (ICD-10-PCS; 2017-06-27)
DX: F10.230 Alcohol dependence with withdrawal, uncomplicated (principal); G92 Toxic encephalopathy; E83.51 Hypocalcemia; F33.1 Major depressive disorder, recurrent, moderate; N39.0 Urinary tract infection, site not specified; F11.23 Opioid dependence with withdrawal; F13.230 Sedative, hypnotic or anxiolytic dependence with withdrawal, uncomplicated; Y90.9 Presence of alcohol in blood, level not specified; M79.7 Fibromyalgia; Z59.0 Homelessness; D64.9 Anemia, unspecified; G47.00 Insomnia, unspecified; F43.12 Post-traumatic stress disorder, chronic; T74 Adult and child abuse, neglect and other maltreatment, confirmed; J45.909 Unspecified asthma, uncomplicated; Z91.410 Personal history of adult physical and sexual abuse; F17.210 Nicotine dependence, cigarettes, uncomplicated
CPT/HCPCS: 36415; 70030-TC; 80307; 80345; 80346; 80361; 83550; 83735; 84703; 85025; 86580; 86592; 86705; 86803; 87340; 87806; A4663; G0480; J1885; Q0162; Q0163